=== PATIENT | female | born 1985 | race African-American/Black ===

== ENCOUNTER 2016-09-21 22:11 | Emergency (ER) | payer SELFPAY ==
[~2016-09-21 22:11] MED LIST: CIPR500T4 PO; HYDR-3533 PO
[2016-09-21 22:14] VITALS: BP 135/73; PULSE 101; RESP 16; TEMP 98.6; O2SAT 100
[2016-09-21 23:11] LABS: AUTOMATED NEUTROPHIL # 4.6 TH/MM3 (1.8-7.7); BASOPHIL # 0.1 TH/MM3 (0-0.2); BASOPHIL % 1.1 % (0.0-2.0); EOSINOPHIL % 0.2 % (0.0-4.0); HEMATOCRIT 28.1 % (35.0-46.0); LYMPH % 25.4 % (9.0-44.0); LYMPHOCYTE # 1.8 TH/MM3 (1.0-4.8); MEAN CELL VOLUME 66.2 FL (80.0-100.0); MEAN CORPUSCULAR HEMOGLOBIN 20.9 PG (27.0-34.0); MEAN CORPUSCULAR HGB CONC 31.5 % (32.0-36.0); MONO % 9.5 % (0.0-8.0); NEUT % 63.8 % (16.0-70.0); PLATELET COUNT 349 TH/MM3 (150-450); RED BLOOD COUNT 4.24 MIL/MM3 (4.00-5.30); WHITE BLOOD COUNT 7.2 TH/MM3 (4.0-11.0)
[2016-09-21 23:12] LABS: HEMO FLAGS AUTO DIFF
[2016-09-21 23:36] LABS: ANION GAP 7 MEQ/L (5-15); BICARBONATE 27.2 MEQ/L (21.0-32.0); BLOOD UREA NITROGEN 9 MG/DL (7-18); CHLORIDE 104 MEQ/L (98-107); GLOMERULAR FILTRATION RATE 103 ML/MIN (>89); POTASSIUM 3.6 MEQ/L (3.5-5.1); SODIUM (NA) 138 MEQ/L (136-145)
[2016-09-21 23:40] LABS: ACANTHOCYTES OCC (NORMAL); KERATOCYTES OCC (NORMAL); OVALOCYTES 1+ (NORMAL); PLATELET ESTIMATE SMEAR NORMAL (NORMAL); PLATELET MORPHOLOGY NORMAL (NORMAL); SCAN/DIFF AUTO DIFF CONFIRMED
[2016-09-21 23:41] LABS: CREATINE KINASE 191 U/L (26-192)
[2016-09-21 23:53] LABS: CKMB 1.5 NG/ML (0.5-3.6)
[2016-09-22] MEDS ORDERED: KETOROLAC TROMETHAMINE 30 MG/ML (IVP) VIAL IV PUSH ONE (01:15)
--- NOTE | 2016-09-22 01:28 | RADRPT ---
EXAM DATE/TIME: 09/22/2016 01:20 [place] COMPARISON: No previous studies available for comparison. INDICATIONS : Chest pain. MEDICAL HISTORY : None. SURGICAL HISTORY : None. ENCOUNTER: Initial ACUITY: 1 day PAIN SCORE: 4/10 LOCATION: chest substernal. FINDINGS: PA and lateral views of the chest demonstrate the lungs to be symmetrically aerated without evidence of mass, infiltrate or effusion. The cardiomediastinal contours are unremarkable. Osseous structure s are intact. CONCLUSION: No acute disease. Julio Lopez MD on September 22, 2016 at 1:26 Board Certified Radiologist. This report was verified electronically.
[2016-09-22 02:19] LABS: BETA HCG QUANT LESS THAN 1 MIU/ML (0-5)
--- NOTE | 2016-09-22 02:32 | PD ---
HPI Chief Complaint: Chest Pain Time Seen by Provider: 00:52 Travel History International Travel<30 days: No Contact w/Intl Traveler<30days: No Traveled to known affect area: No History of Present Illness HPI Patient is a 31 year old female who comes in complaining of chest pain. She says it started at 9PM tonight. She says it started while walking home from the grocery store. She says it is in the middle of her chest. She denies SOB, nausea, or vomiting. She did not take anything for pain. She has not had cough or cold. She says she has not had pain like this before. She says she would like to go home. [facility] Past Medical History Medical History: Denies Significant Hx Diminished Hearing: No Influenza Vaccination: No ?: Not Past Surgical History Surgical History: No Previous Surgery Social History Alcohol Use: No Tobacco Use: No Substance Use: No Allergies-Medications (Allergen,Severity, Reaction): Coded Allergies: No Known Allergies (Unverified , 09/21/16) Reported Meds & Prescriptions Reported Meds & Active Scripts Active Review of Systems Except as stated in HPI: all other systems reviewed are Neg General / Constitutional: No: Fever, Chills HENT: No: Headaches, Lightheadedness Cardiovascular: Positive: Chest Pain or Discomfort Respiratory: No: Cough, Shortness of Breath Gastrointestinal: No: Nausea, Vomiting Musculoskeletal: No: Myalgias, Edema, Pain Skin: No Rash, No Change in Pigmentation Neurologic: No: Weakness, Dizziness Physical Exam Narrative GENERAL: Awake and alert, in no acute distress. SKIN: Focused skin assessment warm/dry. HEAD: Atraumatic. Normocephalic. EYES: Pupils equal and round. No scleral icterus. ENT: Mucous membranes pink and moist. NECK: Trachea midline. No JVD. CARDIOVASCULAR: Regular rate and rhythm. No murmur appreciated. No chest wall tenderness. RESPIRATORY: No accessory muscle use. Clear to auscultation. Breath sounds equal bilaterally. GASTROINTESTINAL: Abdomen soft, non-tender, nondistended. MUSCULOSKELETAL: No obvious deformities. No clubbing. No cyanosis. No edema. No calf tenderness. NEUROLOGICAL: Awake and alert. No obvious cranial nerve deficits. Motor grossly within normal limits. Normal speech. PSYCHIATRIC: Appropriate mood and affect; insight and judgment normal. Data Data Last Documented VS Vital Signs Date Time Temp Pulse Resp B/P Pulse Ox O2 Delivery O2 Flow Rate FiO2 09/21/16 22:14 98.6 101 16 135/73 100 Orders Electrocardiogram (09/21/16 22:17) Complete Blood Count With Diff (09/21/16 22:17) Basic Metabolic Panel (Bmp) (09/21/16 22:17) Ckmb (Isoenzyme) Profile (09/21/16 22:17) Troponin I (09/21/16 22:17) Iv Access Insert/Monitor (09/21/16 22:17) Ecg Monitoring (09/21/16 22:17) Oxygen Administration (09/21/16 22:17) Oximetry (09/21/16 22:17) CKMB (09/21/16 22:50) CKMB% (09/21/16 22:50) Beta Hcg (Quant/Titer) (09/22/16 01:02) Chest, Pa & Lat (09/22/16 ) Ketorolac Inj (Toradol Inj) (09/22/16 01:15) Ed Urine Pregnancytest Poc (09/22/16 01:02) Labs Laboratory Tests Test 09/21/16 09/22/16 22:50 01:25 White Blood Count 7.2 TH/MM3 Red Blood Count 4.24 MIL/MM3 Hemoglobin 8.8 GM/DL Hematocrit 28.1 % Mean Corpuscular Volume 66.2 FL Mean Corpuscular Hemoglobin 20.9 PG Mean Corpuscular Hemoglobin 31.5 % Concent Red Cell Distribution Width 18.0 % Platelet Count 349 TH/MM3 Mean Platelet Volume 8.8 FL Neutrophils (%) (Auto) 63.8 % Lymphocytes (%) (Auto) 25.4 % Monocytes (%) (Auto) 9.5 % Eosinophils (%) (Auto) 0.2 % Basophils (%) (Auto) 1.1 % Neutrophils # (Auto) 4.6 TH/MM3 Lymphocytes # (Auto) 1.8 TH/MM3 Monocytes # (Auto) 0.7 TH/MM3 Eosinophils # (Auto) 0.0 TH/MM3 Basophils # (Auto) 0.1 TH/MM3 CBC Comment AUTO DIFF Differential Comment AUTO DIFF CONFIRMED Platelet Estimate NORMAL Platelet Morphology Comment NORMAL Ovalocytes 1+ Acanthocytes OCC Keratocytes OCC Sodium Level 138 MEQ/L Potassium Level 3.6 MEQ/L Chloride Level 104 MEQ/L Carbon Dioxide Level 27.2 MEQ/L Anion Gap 7 MEQ/L Blood Urea Nitrogen 9 MG/DL Creatinine 0.79 MG/DL Estimat Glomerular Filtration 103 ML/MIN Rate Random Glucose 93 MG/DL Calcium Level 8.6 MG/DL Total Creatine Kinase 191 U/L Creatine Kinase MB 1.5 NG/ML Troponin I LESS THAN 0.02 NG/ML Human Chorionic Gonadotropin, LESS THAN 1 Quant MIU/ML MDM Medical Decision Making Medical Screen Exam Complete: Yes Emergency Medical Condition: Yes Medical Record Reviewed: Yes Interpretation(s) ECG shows normal sinus rhythm at 88, no ST elevation or depression, normal intervals. Differential Diagnosis Pneumonia versus costochondritis versus pneumothorax versus ACS (unlikely) Narrative Course Patient is a 31-year-old female comes in complaining of chest pain. Exam shows no acute abnormalities. IV established, labs sent. Labs show no acute abnormalities. Troponin is negative. Chest x-ray shows no acute abnormalities. Patient given Toradol for pain. She is asking to go home. Advised to take ibuprofen as needed for pain. Advised follow-up with her primary care doctor. Advised to return to the ED as needed for any worsening symptoms. Diagnosis Primary Impression: Chest pain Qualified Code: R07.9 - Chest pain, unspecified type Referrals: [facility] call for appointment Patient Instructions: Chest Pain (ED), General Instructions Additional Instructions: Follow up with a primary care physician. Take Ibuprofen as needed for pain. Return to the ED as needed for any worsening symptoms. Disposition: 01 DISCHARGE HOME Condition: Stable Brittanie Sarah MD September 22, 2016 02:32
[2016-09-22 03:01] VITALS: BP 132/70
--- NOTE | 2016-09-22 14:18 | EKG ---
Date Performed: 09/21/2016 Time Performed: 22:36:32 PTAGE: 31 years EKG: Sinus rhythm NORMAL ECG NO PREVIOUS TRACING DOCTOR: Betito Bobby Interpretating Date/Time 09/22/2016 14:17:05
== END 2016-09-22 03:01 | disposition home or self-care (01) ==
LOC: NEPC 22:11
DX: R07.9 Chest pain, unspecified (principal)
CPT/HCPCS: 71020; 80048; 82550; 82552; 84484; 84702; 84703; 85025; 93005; 96374; 99285; J1885

== ENCOUNTER 2017-04-14 22:03 | Emergency (ER) | payer SELFPAY ==
[2017-04-14 22:04] VITALS: BP 141/76; PULSE 103; RESP 18; TEMP 98.3; O2SAT 99
--- NOTE | 2017-04-14 22:31 | PD ---
HPI Chief Complaint: Abdominal Pain Time Seen by Provider: 22:30 Travel History International Travel<30 days: No Contact w/Intl Traveler<30days: No Traveled to known affect area: No History of Present Illness HPI 32-year-old female came to the emergency room with history of pelvic pain that has been on and off for past couple days. Patient says that she tested for couple of times at home and it was positive. Her last menstrual period was February 26. Patient is A0. No history of spotting or bleeding. No history of dysuria or hematuria. No history of fever or chills. Patient is not vomiting. Vital signs are stable. [facility] Past Medical History Narrative Medical List of her past medical, surgical, social and family history is reviewed from the nursing note. Medical History: Denies Significant Hx Diminished Hearing: No Influenza Vaccination: No ?: LMP: 02/26/2017 : 4 Para: 3 Past Surgical History Surgical History: No Previous Surgery Social History Alcohol Use: No Tobacco Use: No Substance Use: No Allergies-Medications (Allergen,Severity, Reaction): Coded Allergies: No Known Allergies (Unverified , 09/21/16) Comments No known drug allergies. Reported Meds & Prescriptions Reported Meds & Active Scripts Active Vitamins Tablet (Pnv No.95/Ferrous Fum/Folic AC) 28 Mg Iron-800 Mcg Tablet 1 Tab PO DAILY Narrative Medication List of her home medications reviewed from the nursing note. Review of Systems Except as stated in HPI: all other systems reviewed are Neg Genitourinary: Positive: Pelvic Pain Physical Exam Narrative GENERAL: Awake, alert, mild distress SKIN: Focused skin assessment warm/dry. HEAD: Atraumatic. Normocephalic. EYES: Pupils equal and round. No scleral icterus. No injection or drainage. ENT: No nasal bleeding or discharge. Mucous membranes pink and moist. NECK: Trachea midline. No JVD. CARDIOVASCULAR: Regular rate and rhythm. No murmur appreciated. RESPIRATORY: No accessory muscle use. Clear to auscultation. Breath sounds equal bilaterally. GASTROINTESTINAL: Abdomen soft, non-tender, nondistended. Hepatic and splenic margins not palpable. MUSCULOSKELETAL: No obvious deformities. No clubbing. No cyanosis. No edema. NEUROLOGICAL: Awake and alert. No obvious cranial nerve deficits. Motor grossly within normal limits. Normal speech. PSYCHIATRIC: Appropriate mood and affect; insight and judgment normal. Data Data Last Documented VS Orders Orders Ed Poc Ultrasound (04/14/17 ) Urinalysis - C+S If Indicated (04/14/17 22:35) Ed Discharge Order (04/14/17 23:50) Labs Laboratory Tests Test 04/14/17 22:53 Urine Color YELLOW Urine Turbidity HAZY Urine pH 7.5 Urine Specific [place] 1.019 Urine Protein NEG mg/dL Urine Glucose (UA) NEG mg/dL Urine Ketones NEG mg/dL Urine Occult Blood NEG Urine Nitrite NEG Urine Bilirubin NEG Urine Urobilinogen LESS THAN 2.0 MG/DL Urine Leukocyte Esterase NEG Urine WBC 1 /hpf Urine Squamous Epithelial Cells 3 /hpf Urine Amorphous Sediment MANY Microscopic Urinalysis Comment CULT NOT INDICATED MDM Medical Decision Making Medical Screen Exam Complete: Yes Emergency Medical Condition: Yes Medical Record Reviewed: Yes Differential Diagnosis First trimester , UTI, ectopic Narrative Course 11:56 PM bedside ultrasound done by me confirming intrauterine . Please refer to my procedure note. UA is negative. I will discharge her home. Procedures Procedure Narrative Emergency Department Pelvic ultrasound was performed with patient consent. The curvilinear probe was used in the transverse and sagittal views within the suprapubic region revealing single live intrauterine . heart rate was 125 bpm. See this measures 6 weeks 6 days by crown-rump length. EKG Prior to Arrival: No Diagnosis Primary Impression: First trimester Additional Impression: Pelvic pain during Referrals: Tequila Lemos MD Additional Instructions: Please find an security system engineer for your . The specialist color control operator for this has been given the phone number that she can call and try to see if you can be seen. Take the vitamins every day. Drink lots of fluid. Return to the ER if condition worsens or any other new concerns. Med/Other Pt SpecificInfo: Prescription(s) given Scripts Pnv No.95/Ferrous Fum/Folic AC ( Vitamins Tablet) 28 Mg Iron-800 Mcg Tablet 1 TAB PO DAILY, #30 Prov: Rudy Mckeon MD 04/14/17 Disposition: 01 DISCHARGE HOME Condition: Stable Rudy Mckeon MD Apr 14, 2017 22:31
[2017-04-14 23:10] LABS: BLOOD, URINE NEG (NEG); COMMENT (UR) CULT NOT INDICATED; CULTURE IF INDICATED CULT NOT INDICATED; GLUCOSE,URINE NEG (NEG); KETONE, URINE NEG (NEG); NITRITE,URINE NEG (NEG); PH, URINE 7.5 (5.0-8.5); SQUAMOUS EPITHELIAL CELL URINE 3 /hpf (0-5); URINE COLOR YELLOW (YELLW/STRAW)
[2017-04-14] MEDS ORDERED: PRENTAB7 PO (23:52)
== END 2017-04-15 00:06 | disposition home or self-care (01) ==
LOC: NEPE 22:03
DX: O26.891 Other specified pregnancy related conditions, first trimester (principal); R10.2 Pelvic and perineal pain; Z3A.01 Less than 8 weeks gestation of pregnancy
CPT/HCPCS: 81001; 99284

== ENCOUNTER 2017-09-03 13:59 | Emergency (ER) | payer MEDICAID ==
[~2017-09-03 13:59] MED LIST changes: -CIPR500T4 PO; -HYDR-3533 PO; +PRENTAB7 PO
--- NOTE | 2017-09-03 15:16 | PD ---
HPI Chief Complaint Lower abdominal pain since June Date Seen: Sep 03, 2017 Time Seen: 15:09 Travel History International Travel<30 Days: No Contact w/Intl Traveler<30Days: No Known Affected Area: No History of Present Illness HPI 32-year-old 4 para 3 at 27+ weeks gestation who comes today with a complaint of persistent abdominal pain and pressure since June. Patient denies any bleeding, dysuria hematuria or frequency. No vaginal discharge. She reports good movement. She states that she has been constipated. The patient reports that the pressure and pain is worsened by being on her feet or lifting. It is typically relieved by being off her feet or a night sleep. History Past Medical History Narrative Medical History of renal lithiasis Obstetric History Obstetric History 3 vaginal deliveries This was originally cared for at [facility] but she has recently transferred to [facility]. Past Surgical History Surgical History: No Previous Surgery Family History Family History: Negative Social History Alcohol Use: No Tobacco Use: No Substance Abuse: No Allergies-Medications (Allergen,Severity, Reaction): Coded Allergies: No Known Allergies (Unverified , 09/21/16) Home Meds Active Scripts Pnv No.95/Ferrous Fum/Folic AC ( Vitamins Tablet) 28 Mg Iron-800 Mcg Tablet, 1 TAB PO DAILY, #30 Prov:Rudy Mckeon MD 04/14/17 Review of Systems Except as stated in HPI: all other systems reviewed are Neg Physical Exam Narrative GENERAL: Well-nourished, well-developed patient. SKIN: Warm and dry. HEAD: Normocephalic and atraumatic. EYES: No scleral icterus. No injection or drainage. ENT: No nasal drainage noted. Mucous membranes pink. Airway patent. NECK: Supple, trachea midline. No JVD. CARDIOVASCULAR: Regular rate and rhythm without murmurs, gallops, or rubs. RESPIRATORY: Breath sounds equal bilaterally. No accessory muscle use. ABDOMEN/GI: Abdomen soft, non-tender, bowel sounds present, no rebound, no guarding Gravid to [-] weeks size Fundal Height: [-] GENITOURINARY: Uterine Contractions: [-] FHT's: Category: [-] Baseline: [-] Reactive: [ok-] Variability: [-] Decels: [no-] EXTREMITIES: No cyanosis or edema. BACK: Nontender without obvious deformity. No CVA tenderness. NEUROLOGICAL: Awake and alert. Motor and sensory grossly within normal limits. Five out of 5 muscle strength in all muscle groups. Normal speech. MDM Medical Record Reviewed: Yes Narrative Course / MDM Assessment: related discomfort of the lower abdomen Plan: Discussed with the patient obtaining a belly band for support. Encouraged hydration. Follow-up September 14 with trevon. Diagnosis Diagnosis: Primary Impression: 27 weeks gestation of Additional Impression: associated abdominal pain Disposition: DISCHARGE HOME Condition: [place] German MD Sep 03, 2017 15:16
== END 2017-09-03 15:24 | disposition home or self-care (01) ==
LOC: HOBED 13:59
DX: O26.892 Other specified pregnancy related conditions, second trimester (principal); Z3A.27 27 weeks gestation of pregnancy
CPT/HCPCS: 99283